=== PATIENT | male | born 1955 | race Caucasian/White ===

== ENCOUNTER → 2020-03-08 | Outpatient (CLI) | payer BC ==
[~2020-03-08] MED LIST: CETI10TA16 PO; LISI10TA2 PO; MELO15TA23 PO; OXYC1TAB19 PO; SIMV10TA15 PO; TRAM50TA PO
== END | disposition home or self-care (01) ==
LOC: LAB 13:40
PROVIDERS: ATTEND Orthopaedic Surgery
DX: Z11.59 Encounter for screening for other viral diseases (principal)
CPT/HCPCS: U0003-CS

== ENCOUNTER 2020-03-12 06:47 | Day surgery (SDC) | payer BC ==
[~2020-03-12] VITALS: Ht 174 cm; Wt 107.0 kg
[2020-03-12] MEDS ORDERED: fentaNYL PF VIAL 100 MCG/2 ML VIAL IV PRN ×2 (07:00)
[2020-03-12] MEDS ORDERED: HYDROmorphone 2 MG/ML VIAL IV PRN (07:00)
[2020-03-12] MEDS ORDERED: MORPHINE SULFATE 2 MG/ML VIAL. IV PRN (07:00)
[2020-03-12] MEDS ORDERED: IV RINGERS,LACTATED 1000ML 1,000 ML IV SCH (07:00)
[2020-03-12] MEDS ORDERED: ONDANSETRON PF 4 MG/2 ML VIAL. IV PRN (07:00)
[2020-03-12] MEDS ORDERED: PROCHLORPERAZINE 10 MG/2 ML VIAL. IV PRN (07:00)
[2020-03-12] MEDS ORDERED: EPINEPHrine VIAL 30 MG/30 ML VIAL ONE (07:06)
[2020-03-12] MEDS ORDERED: LISI10TA2 PO (07:19)
[2020-03-12] MEDS ORDERED: SIMV10TA15 PO (07:19)
[2020-03-12] MEDS ORDERED: CETI10TA16 PO (07:19)
[2020-03-12] MEDS ORDERED: MELO15TA23 PO (07:19)
[2020-03-12] MEDS ORDERED: TRAM50TA PO (07:19)
[2020-03-12 07:30] LABS: BASO % 0 % (0-3); EOS # 0.3 x10^3/uL (0.0-0.7); EOS % 4 % (0-3); HEMATOCRIT 39.3 % (39.0-53.0); HEMOGLOBIN 13.2 g/dL (13.0-17.5); LYMPH # 2.9 x10^3/uL (1.0-4.8); LYMPH % 42 % (24-48); MEAN CORPUSCULAR HEMOGLOBIN 29 pg (25-35); MEAN CORPUSCULAR HGB CONC 34 g/dL (31-37); MEAN CORPUSCULAR VOLUME 86 fL (79-100); MONO # 0.7 x10^3/uL (0.0-1.1); MONO % 10 % (0-9); NEUT # 3.1 x10^3/uL (1.8-7.7); NEUT % 44 % (31-73); PLATELET COUNT 270 x10^3/uL (140-400); RED BLOOD COUNT 4.56 x10^6/uL (4.30-5.70); RED CELL DISTRIBUTION WIDTH 14.6 % (11.5-14.5); WHITE BLOOD COUNT 7.1 x10^3/uL (4.0-11.0)
[2020-03-12 07:39] LABS: CALCIUM 8.4 mg/dL (8.5-10.1); CREATININE 1.1 mg/dL (0.7-1.3); GFR 67.2; POTASSIUM 3.7 mmol/L (3.5-5.1)
--- NOTE | 2020-03-12 07:39 | EKG ---
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 Electronically Signed On 03-12-2020 16:47:47 CDT by Darwin Saleem
[2020-03-12] MEDS ORDERED: DEXAMETHASONE SOD PHOS 4 MG/ML VIAL ONE (07:54)
[2020-03-12] MEDS ORDERED: PROPOFOL 10 MG/ML (20ML) VIAL. IV ONE (07:54)
[2020-03-12] MEDS ORDERED: ONDANSETRON PF 4 MG/2 ML VIAL. ONE (07:54)
[2020-03-12] MEDS ORDERED: LIDOCAINE 2% PF 5 ML VIAL. ONE (07:54)
[2020-03-12] MEDS ORDERED: ROCURONIUM 50 MG/5 ML VIAL. ONE (07:54)
[2020-03-12] MEDS ORDERED: ROPIVacaine 0.5% PF 20 ML VIAL. ONE (08:02)
[2020-03-12] MEDS ORDERED: MIDAZOLAM HCL/PF 2 MG/2 ML VIAL. ONE (08:02)
[2020-03-12] MEDS ORDERED: fentaNYL PF VIAL 100 MCG/2 ML VIAL ONE (08:07)
[2020-03-12] MEDS ORDERED: OXYC1TAB19 PO (08:35)
--- NOTE | 2020-03-12 08:38 | DISCH ---
DISCHARGE INSTRUCTIONS Condition on Discharge Condition on Discharge: Stable Activity After Discharge Activity Instructions for Disc: Other, see below (Passive motion right shoulder only no lifting elbow actively away from the body) Weight Bearing Status after Di: Non weight bearing Diet after Discharge Diet after Discharge: Regular Wound Incision Care Wound/Incision Care: Ice to area for comfort, Change dressing (Remove dressing in 2 days may then shower) Community/Resources/Services Services at Discharge: PT EVALUATE & TREAT (Initially passive range of motion right shoulder only evaluate and treat) Contacting the DRDelfina after DC Call your doctor for: Concerns you may have Follow-Up Follow up with: Dr. Pollock 10 days NANETTE POLLOCK MD Mar 12, 2020 08:38
[2020-03-12] MEDS ORDERED: NEOSTIGMINE METHYLSULFATE 5 MG/5 ML SYRINGE. ONE (10:00)
[2020-03-12] MEDS ORDERED: GLYCOPYRROLATE 1 MG/5 ML VIAL. ONE (10:00)
[2020-03-12] MEDS ORDERED: SEVOFLURANE > 120 MINUTES. IH ONE (11:38)
[2020-03-12] MEDS ORDERED: oxyCODONE/APAP 7.5/325 1 TAB TABLET PO PRN (12:00)
[2020-03-12 13:08] VITALS: BP 119/66
--- NOTE | 2020-03-12 13:32 | PDOC4 ---
Operative Note Operative Note Date of surgery: 03/12/2020 Preoperative diagnosis: Right rotator cuff tear Postoperative diagnosis: Same with significant bicipital fraying and type II SLAP tear Operative procedure: Right shoulder arthroscopy, rotator cuff repair biceps tenodesis and subacromial decompression Surgeon: Phill Electronic Pagination System Operator: Phill monroy assist Anesthesia: General plus interscalene block Estimated blood loss: 10 cc Complications: None Operative indications: Please see my orthopedic clinic note for detailed operative indications and note that we had covered the significance of a full- thickness tear of the rotator cuff possibility of nonoperative treatment understanding that the tear itself does not heal but can be compensated for potentially. Given that he is having ongoing significant pain and weakness and is otherwise very active we talked about operative treatment of a rotator cuff repair and other associated pathology. He is aware of the possibility of nonhealing nerve or blood vessel damage medical or other anesthetic complications among others continued pain weakness and a long recovery. All his questions were answered he wishes to proceed with surgical evaluation and treatment. Operative text: Patient was identified procedure verified patient placed in the supine position on the operating table. After adequate amounts of general anesthesia plus a pre-existing scalene block were obtained he was placed decubitus right side up all bony prominences were well-padded and the right shoulder was examined under anesthesia found to have full range of motion and no instability. The right shoulder was then prepped and draped in standard sterile fashion placed in the arthroscopic arm beach with a total of 10 pounds of traction and after timeout was performed patient procedure identified and verified a standard posterior portal was established an anterior portal established using spinal needle localization and the shoulder joint was systematically examined. Glenohumeral cartilage was noted to be overall intact with some mild chondromalacia of the glenoid not requiring debridement. He was noted to have a type II SLAP tear and significant bicipital fraying at the junction of the superior labrum and had a very significant near full-thickness tear of the distal supraspinatus insertion and anterior aspect of the infraspinatus visible from the joint side. He had a normal bare area of the humerus and capsule ligamentous structures were otherwise normal in appearance. Biceps tendon was cut and tagged in the subacromial space was entered bursa was cleared to allow visualization and there was only wispy tissue connecting the distal supraspinatus which was readily penetrated with the probe. This tissue was taken down and the rotator cuff footprint was prepared with the arthroscopic bur. 2 absorbable double loaded Mohamud anchors were placed along the medial row and sutures were placed in a simple type fashion with lateral row repair being completed with 2 Ventak's anchors the anterior of which was used to incorporate the biceps tenodesis. Rotator cuff repair and biceps tenodesis were noted to be intact in all degrees of internal/external rotation with a watertight repair anterior acromial spur was removed back to a type I acromion with the arthroscopic bur using cutting block technique. The joint was drained of arthroscopic fluid and closure with buried Vicryl skin closure with nylon sterile dressings were applied right upper extremity was placed in an immobilizer he was returned to recovery room in stable condition having tolerated procedure well. Phill monroy assist was present for the procedure and assisted in the patient positioning prepping draping retraction closure NANETTE STRAUSS MD Mar 12, 2020 13:32
== END 2020-03-12 14:00 | disposition home or self-care (01) ==
LOC: SURG 06:47
PROVIDERS: ATTEND Orthopaedic Surgery
DX: M75.111 Incomplete rotator cuff tear or rupture of right shoulder, not specified as traumatic (principal); M66.811 Spontaneous rupture of other tendons, right shoulder; I10 Essential (primary) hypertension; E78.00 Pure hypercholesterolemia, unspecified; J45.909 Unspecified asthma, uncomplicated; E66.9 Obesity, unspecified; Z79.899 Other long term (current) drug therapy; Z98.890 Other specified postprocedural states; Z68.35 Body mass index [BMI] 35.0-35.9, adult; Z87.891 Personal history of nicotine dependence
CPT/HCPCS: 29826; 29827; 29828; 36415; 64415; 80048; 85025; 93005; A7015; C1713; J0171; J1100; J2250; J2405; J2704; J2710; J2795; J3010; J3490; J7120